=== PATIENT | female | born 1985 | race Caucasian/White ===

== ENCOUNTER → 2019-06-02 | Outpatient (CLI) | payer OTHER, SELFPAY ==
[2019-05-06 08:24] VITALS: BMI 31.3
[2019-06-02 13:12] LABS: Absolute Lymphocyte Count 1.67 X10^3/uL (0.83-4.51); Absolute Neutrophil Count 7.7 X10^3/uL (2.0-7.7); Basophil# 0.03 X10^3/uL; Basophil% 0.3 % (0-1); Eosinophil# 0.12 X10^3/uL; Eosinophils% 1.2 % (0-5); Hematocrit 36.9 % (37-47); Hemoglobin 11.9 g/dL (12.0-15.0); Lymphocyte # 1.67 X10^3/ul (4.0); Mean Corp Hgb Conc 32.2 g/dL (32-36); Mean Corpuscular Hgb 27.9 pg (27.0-32.0); Mean Corpuscular Volume 86.6 fL (81-99); Mean Platelet Vol. 10.5 fl (6.2-12.0); Monocyte# 0.55 X10^3/uL; Monocyte% 5.3 % (0-10); NRBC Flagged by Analyzer 0 % (0-5); Neutrophil # 7.71 X10^3/uL (2.7-7.7); Neutrophil % 73.9 % (47-70); Platelet Count 261 K/mm3 (150-450); RBC Distribution Width CV 14.8 % (11.6-14.6); RBC Distribution Width SD 46.8 fl (35.1-43.9); Red Blood Count 4.26 M/mm3 (4.2-5.4); White Blood Count 10.4 K/mm3 (4.4-11.0)
[2019-06-02 13:20] LABS: Glucose Challenge Gest 1H 50g 132 mg/dL (70-140)
== END | disposition home or self-care (01) ==
LOC: PAVLAB 13:02
PROVIDERS: PCP Internal Medicine; Referring Provider Obstetrics & Gynecology; Visit Provider Obstetrics & Gynecology
DX: O09.90 Supervision of high risk pregnancy, unspecified, unspecified trimester (principal); Z3A.00 Weeks of gestation of pregnancy not specified
CPT/HCPCS: 82950; 85025

== ENCOUNTER → 2019-07-14 | Outpatient (CLI) | payer OTHER, SELFPAY ==
[2019-07-01 11:31] VITALS: BMI 31.3
--- NOTE | 2019-07-14 08:10 | US_ITS ---
STUDY: SECOND AND THIRD TRIMESTER OBSTETRICAL ULTRASOUND REASON FOR EXAM: Female, 34 years old growth LMP: December 02, 2018. TECHNIQUE: Transabdominal TECHNICAL QUALITY: Adequate. PRIOR ULTRASOUND: None. FINDINGS: There is a single intrauterine fetus. The fetus is in a cephalic presentation. There is demonstrated cardiac activity with a heart rate of 133 bpm. There is a normal amniotic fluid volume. The largest amniotic fluid pocket measures 5.6 cm. The amniotic fluid index (RABIA) is 15.5 cm. The placenta is posterior in location and is not low lying. There are Grade 1 placental changes. The cervix measures 4.0 cm in length. The bilateral adnexal regions are normal. BIOMETRY: BPD: 8 cm: 32 weeks, 0 days HC: 29.2 cm: 32 weeks, 1 days AC: 28 cm: 28 weeks, 2 days FL: 6.1 cm: 6 weeks, 1 days CI: 78% FL/BPD: 77% FL/HC: FL/AC: 22% HC/AC: 1.04 age by current US: 32 weeks, 0 days. ANNALISE by current US: September 08, 2019. Estimated weight: 1901 grams, +/- 281 grams, 38 %. Age by LMP: 32 weeks, 0 days. ANNALISE by LMP: September 08, 2019. US/OB Limited With Biometrics IMPRESSION: Single live uterine gestation with mean gestational age of 32 weeks. Electronically Signed: Abdoulaye Lopez, at 11:02 EDT , Service support ,
== END | disposition home or self-care (01) ==
LOC: OPUS 08:07
PROVIDERS: PCP Internal Medicine; Referring Provider Obstetrics & Gynecology; Visit Provider Obstetrics & Gynecology
DX: O09.90 Supervision of high risk pregnancy, unspecified, unspecified trimester (principal); Z15.89 Genetic susceptibility to other disease; Z3A.00 Weeks of gestation of pregnancy not specified
CPT/HCPCS: 76816

== ENCOUNTER → 2019-08-11 | Outpatient (CLI) | payer OTHER, SELFPAY ==
[2019-07-01 11:31] VITALS: BMI 31.3
[2019-08-11 10:15] VITALS: BMI 31.3
== END | disposition home or self-care (01) ==
LOC: OPUS 13:24
PROVIDERS: PCP Internal Medicine; Referring Provider Obstetrics & Gynecology; Visit Provider Obstetrics & Gynecology
DX: O09.90 Supervision of high risk pregnancy, unspecified, unspecified trimester (principal); Z3A.00 Weeks of gestation of pregnancy not specified
CPT/HCPCS: 87081

== ENCOUNTER 2019-09-08 09:40 | Inpatient (IN) | payer OTHER, SELFPAY ==
[2019-09-08] VITALS (42 sets, daily range): BP systolic 112–150; BP diastolic 58–93; PULSE 72–103; TEMP 35.6–37.2; O2SAT 97–99; BMI 32.1
[2019-09-08] MEDS: Lactated Ringers 1,000 ML 50 ML IV (10:21)
--- NOTE | 2019-09-08 10:35 | HP.PCM_ITS ---
- Problem List (1) Encounter for induction of labor Status: Acute (2) Oligohydramnios Status: Acute (3) ALVINO-1 4G/4G genotype Status: Acute Comment: baby asa, growth us (4) Status: Acute Qualifiers: Comment: Declined 1st trimester screen/NT- 02/16/19; urine culture negative 02/18/19, declined carrier and ntd screening. 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 Required: No Is patient in pain?: No Allergies No Known Allergies Allergy (Verified 09/08/19 09:08) Medications Vits [Prenatabs FA ] 1 tab PO DAILY #30 tab 04/17/13 [Rx Confirmed 09/08/19] aspirin 81 mg chewable tablet 81 mg PO DAILY 03/04/19 [History Confirmed 09/08/19] lactobacillus combination no.8 3 billion cell capsule 3,000 mmu cells PO DAILY 03/10/19 [History Confirmed 09/08/19] Last Menstral Period: 12/07/19 Zika: Zika virus screening: Negative : No PFSH PFSH Medical History Biochemical (Acute) High risk due to recurrent loss (Acute) ALVINO-1 4G/4G genotype (Acute) Surgical History History of ankle surgery (Resolved) History of ankle surgery (Resolved) Family History Mother Breast cancer Grandmother Diabetes Sister Diabetes mellitus type 1 Grandfather Hypertension Social History (Updated 09/08/19 @ 09:[address] 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 Date Name GA/Weeks Outcome Route Bth Weight Gen Labor Lgth Anesthesia Del Locatn Provider FOB 04/15/13 [facility] HPI 40WK OB HAPPY DUE DATE!: Details: KHOA VILLASEÑOR is a 34 year old who presents for routine OB visit. upon evaluation she is found to have oligohydramnios with an rabia of 2.6 cm so will be proceeding with induction OB Visit ANNALISE Calculator Estimated Delivery Date Method Current WG Current Estimate 09/08/19 LMP (Certain) 40w 0d Expected Delivery Route/Plan Labor Preferences- labor support person: Dariel pain management options preferred: epidural cut cord/dad catch: cord : yes PP control planned: [] discussed possible routes of delivery and associated risks: [] special requests: [] Specific Issue/Plans flu vaccine: given tdap vaccine: given rhogam: na LARC form signed: yes movement and labor precautions reviewed. Problem list reviewed and updated with the most current plan of care details and appropriate orders placed. Relevant counseling for the gestational age provided. Continue routine care and follow up unless otherwise noted in visit n otes/problem list details Initial Weight: 193 lb Date EGA Weight BP Urine Prot Glucose FHR FuHt Pres Dilation Effaced St Visit Note 03/10/19 14w 0d 193 lb 2 oz (+2 oz) 125/88 Negative Negative 145 SM- no vb cramping 04/08/19 18w 1d 193 lb (+0 oz) 132/80 Negative Negative 145 SM- no vb crmaping on tamiflu prophylaxis 05/06/19 22w 1d 200 lb (+7 lb) 133/87 Negative Negative 150 SM- no vb lof good fm no regular ctx 06/02/19 26w 0d 197 lb 8 oz (+4 lb 8 oz) 126/78 Negative Negative 146 26 MH-No VB, LOF. Good FM. 28 wk labs today 07/01/19 30w 1d 200 lb 4 oz (+7 lb 4 oz) 126/82 126/82 Trace Negative 160 30 SM- no vb lof good fm no regular ctx 07/15/19 32w 1d 202 lb (+9 lb) 120/70 Negative Negative 145 32 SM- no vb lof good fm no reg ctx 07/29/19 34w 1d 203 lb (+10 lb) 120/74 Negative Negative 147 34 MH-No Vb, LOF. Good FM. Doing well 08/11/19 36w 0d 208 lb 8 oz (+15 lb 8 oz) 130/80 Negative Negative 145 36 SM- no vb lof good fm no regular ctx 08/19/19 37w 1d 207 lb (+14 lb) 124/76 Negative Negative 145 37 Cephalic Sm- no vb lof good fm nor egular ctx. lost grandmother this week but coping well 08/26/19 38w 1d 206 lb (+13 lb) 116/74 Negative Negative 140 38 Cephalic SM- no vb lof good fm no regular ctx 09/01/19 39w 0d 205 lb 8 oz (+12 lb 8 oz) 128/84 Negative Negative 140 39 Cephalic 1 SM- no vb lof good fm no regular ctx 09/08/19 40w 0d 205 lb (+12 lb) 130/86 Negative Negative 140 37 Cephalic 1.5 40 -2 SM- no vb lof good fm no regular ctx. low FH- RABIA mesaured and only 2.6 with significant debris, recommend immediate IOL patient to l and d. ACOG First Trimester First Trimester: Desire for , Alcohol, Tobacco Cessation, Illic it/Recreational Drug/Substance Use, Intimate Partner Violence, Barriers to care, Unstable Housing, Communication Barriers, Environmental/Work Hazards, Anticipated Course of Care, Toxoplasmosis Precations, Use of Any medications, Sexual activity, Exercise, Dental Care, Sauna/Hot tub use, Seat Belt use, Childbirth classes/Hospital facilities, , Travel, Indications for US and Screening for Aneuploidy Second Trimester Second Trimester: Signs and Symptoms of Labor, Selecting a care provider, Reproductive Life Planning, Care Planning, Tobacco Cessation, Depression/Anxiety and Intimate Partner Violence Third Trimester Third Trimester: Pain Management Plans, Labor support person(s), Immediate Larc, Movement Monitoring and Feeding Yes ; discussed Trial of Labor after Counseling or discussed Circumcision preference Diagnostics Diagnostics Diagnostics Glucose 1 Hr 50 gm 132 mg/dL (70-140) 06/02/19 Hgb 11.9 g/dL (12.0-15.0) L 06/02/19 Hct 36.9 % (37-47) L 06/02/19 Details: HIV: Urine Culture: Sequential Screen: NIPT Screen: ROS Const Reports system reviewed and no additional complaints, except as docu Card Reports system reviewed and no additional complaints, except as docu Resp Reports system reviewed and no additional complaints, except as docu GI Reports system reviewed and no additional complaints, except as docu, Reports nausea Reports system reviewed and no additional complaints, except as docu Musc Reports system reviewed and no additional complaints, except as docu Exam Const General: cooperative, healthy appearing, comfortable, anxious HENMT Head: normal to inspection Nose: external nose normal Face and sinus: normal facial exam Neck Neck: normal visual inspection, full ROM, no lymphadenopathy Thyroid: thyroid normal Chest Chest palpation & inspection: normal inspection of the chest Resp Effort & Inspection: normal respiratory effort GI Inspection: normal to inspection Palpation: soft, other (gravid uterus) Other: vertex and appropriate size for gestational age Other: Cervical Exam: Extrem General: pedal edema Results POC Urinalysis 2 Dip (Clinic) Office Urine Glucose Negative Last Edit by Madiha Alonzo on 09/08/19 09:17 Office Urine Protein Negative Last Edit by Madiha Alonzo on 09/08/19 09:17 Assessment & Plan Problems 1. Recurrent loss N96 borderline anticoagulant - 2. ALVINO-1 4G/4G genotype Z15.89 baby asa, growth us 3. 40 weeks gestation of Z3A.40 Declined 1st trimester screen/NT- 02/16/19; urine culture negative 02/18/19, declined carrier and ntd screening. Anatomy US normal; normal growth 07/14/2019 4. Supervision of high risk , antepartum O09.90 PRR ANNALISE 09/08/19 boy Fareed PC Mark Dariel 5. Oligohydramnios O41.00X0 6. Encounter for induction of labor Z34.90 Plan Patient presents IOL, plan management for , pitocin/AROM meade bulb. Pain management: plans epidural. GBS negative. Management of any complications: oligo I have reviewed the [facility] and made any clinically relevant updates. Orders Orders: POC Urinalysis 2 Dip (Clinic) Today Coding Level of Care Code OB Routine Diagnoses Recurrent loss N96 ALVINO-1 4G/4G genotype Z15.89 40 weeks gestation of Z3A.40 ??Weeks of gestation: 40 weeks Supervision of high risk , antepartum O09.90 Oligohydramnios O41.00X0 Encounter for induction of labor Z34.90
[2019-09-08 10:41] LABS: Absolute Lymphocyte Count 1.27 X10^3/uL (0.83-4.51); Absolute Neutrophil Count 6.8 X10^3/uL (2.0-7.7); Basophil# 0.02 X10^3/uL; Basophil% 0.2 % (0-1); Eosinophil# 0.07 X10^3/uL; Eosinophils% 0.8 % (0-5); Hematocrit 40.4 % (37-47); Hemoglobin 13.1 g/dL (12.0-15.0); Lymphocyte # 1.27 X10^3/ul (4.0); Lymphocyte % 14.4 % (19-41); Mean Corp Hgb Conc 32.4 g/dL (32-36); Mean Corpuscular Hgb 27.6 pg (27.0-32.0); Mean Corpuscular Volume 85.1 fL (81-99); Mean Platelet Vol. 11.9 fl (6.2-12.0); Monocyte# 0.61 X10^3/uL; Monocyte% 6.9 % (0-10); NRBC Flagged by Analyzer 0 % (0-5); Neutrophil # 6.76 X10^3/uL (2.7-7.7); Neutrophil % 76.6 % (47-70); Platelet Count 221 K/mm3 (150-450); RBC Distribution Width CV 14.6 % (11.6-14.6); RBC Distribution Width SD 45.2 fl (35.1-43.9); Red Blood Count 4.75 M/mm3 (4.2-5.4); White Blood Count 8.8 K/mm3 (4.4-11.0)
[2019-09-08] MEDS: Oxytocin 30 units/NS 500 ml 30 UNITS/500 ML IV.SOLN IV (11:00)
[2019-09-08] MEDS: 0.9% Normal Saline Single 100 ML IV.SOLN. IY (12:30)
[2019-09-08] MEDS: Lactated Ringers 500 ML 999 ML IV (17:30)
[2019-09-08] MEDS: fentaNYL-bupivacaine (epidural) 100 ML BAG EPIDURAL (18:06)
[2019-09-08] MEDS: Lactated Ringers 1,000 ML 200 ML IV (18:15)
[2019-09-08] MEDS: Oxytocin 30 units/NS 500 ml 30 UNITS/500 ML IV.SOLN 334 UNITS IV (21:03)
--- NOTE | 2019-09-08 21:35 | PCM.OPRPT ---
Problem List (1) Encounter for induction of labor Status: Acute (2) Oligohydramnios Status: Acute (3) ALVINO-1 4G/4G genotype Status: Acute Comment: baby asa, growth us (4) Status: Acute Qualifiers: Comment: Declined 1st trimester screen/NT- 02/16/19; urine culture negative 02/18/19, declined carrier and ntd screening. 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 - (6) Supervision of high risk , antepartum Status: Acute Comment: PRR ANNALISE 09/08/19 boy Fareed Flores Dariel Vaginal Delivery Maternal Presentation: Medically Indicated Induction 34-year-old G6, P1 at 40 weeks presents for induction labor secondary to oligohydramnios with an RABIA of 2.6 cm in the office today Method of Induction: Pitocin, Ramirez Bulb Medical Reason for Induction: - - Oligohydramnios Amniotic Membrane Rupture Type: Artificial Amniotic Fluid Description: Clear Final ANNALISE: 09/08/19 Gestational age: 40 Weeks and 0 Days Date of Procedure: 09/08/19 Pre-Operative Diagnosis: iol oligo Post-Operative Diagnosis: same Surgery/ Procedure Performed: Spontaneous Vaginal Delivery Type of Anesthesia: Epidural Description of Procedure: Patient began pushing and delivered the head in the JED presentation. The head was delivered atraumatically and a loose nuchal cord ?1 was identified and easily reduced over the infant's head. The anterior and posterior shoulders delivered without complication followed by the rest of the and the was placed on the maternal abdomen. Delayed cord clamping was employed for approximately 60 seconds. Cord was clamped and cut and gentle traction was applied to the cord and the placenta delivered spontaneously immediately following it was noted to be intact with three-vessel cord. The perineum and vagina were inspected and noted to hve a small 1st degree perineal laceration repaired in the usual fashion 3-0 vicryl rapide. EBL was 100 cc. Patient and infant tolerated delivery well. Presentation: JED Placental Delivery Description: Spontaneous Placenta Disposition: [facility] Cord Vessel Description: 3 Vessels Cord Entanglement: Around neck x 1, loose Estimated Blood Loss: 100 A gender: Male Episiotomy Description: None Laceration: Perineal Extension/lac, 1st degree Medications given after delivery: IV Pitocin Complications: None Multi Select Codes - Urinary/Genital Urinary/Genital CPT Codes: 26129 Vaginal Delivery [facility]
--- NOTE | 2019-09-08 21:37 | DCINST_ITS ---
Discharge Diet: No Restrictions Discharge Activity: Return to Normal Activity, May not drive while taking narcotic pain medications., May Shower May resume sexual activity in: 4-6 weeks Call your doctor if your incision/area has: Continuous Slow Oozing, Sudden Increased Bleeding, Increased Pain/ Swelling, Increased Redness, Foul Smelling Discharge Additional Instructions: If you experience any of the following, contact your healthcare provider. * Bleeding that soaks a pad every hour for 2 hours * Fever 100.4 or higher * Unrelieved incision or abdominal pain * Swelling, redness, discharge or bleeding from your incision or episiotomy site * Your incision begins to separate * Problems urinating (including inability to urinate or burning while urinating). * Visual changes * Severe headache * Flu-like symptoms * Pain or redness in one of both of your breasts * Pain, warmth, tenderness or swelling in your legs, especially the calf area * Frequent nausea and vomiting * Symptoms of depression or anxiety If you experience any of the following, call 911 or go to the nearest Emergency Room. * Chest pain * Problems breathing * Seizure activity * Partial or complete paralysis of a body part, slurred speech, weakness or drooping of the face, or a sudden inability to walk or hold your balance Allergies/Adverse Reactions: Allergies No Known Allergies Allergy (Verified 09/08/19 09:08) Medications to take at Discharge Vits [Prenatabs FA ] 1 tab PO DAILY #30 tab 04/17/13 Cetirizine HCl [Zyrtec] 10 mg PO DAILY 09/08/19 Please Follow Up With: Alicia Stallings MD - [phone] When: Call to make an appointment with your doctor in 6 weeks. If you had elevated Blood pressure or 4th degree laceration you will need to be seen in 2 weeks. Primary Care Physician: Nora Monte DO [Primary Care Provider] - Test Results: Test results from this visit will be discussed in further detail at your follow- up appointment, if applicable.
--- NOTE | 2019-09-08 21:37 | PCM.DCVAG ---
Discharge Diet: No Restrictions Discharge Activity: Return to Normal Activity, May not drive while taking narcotic pain medications., May Shower May resume sexual activity in: 4-6 weeks Call your doctor if your incision/area has: Continuous Slow Oozing, Sudden Increased Bleeding, Increased Pain/ Swelling, Increased Redness, Foul Smelling Discharge Additional Instructions: If you experience any of the following, contact your healthcare provider. Bleeding that soaks a pad every hour for 2 hours Fever 100.4 or higher Unrelieved incision or abdominal pain Swelling, redness, discharge or bleeding from your incision or episiotomy site Your incision begins to separate Problems urinating (including inability to urinate or burning while urinating). Visual changes Severe headache Flu-like symptoms Pain or redness in one of both of your breasts Pain, warmth, tenderness or swelling in your legs, especially the calf area Frequent nausea and vomiting Symptoms of depression or anxiety If you experience any of the following, call 911 or go to the nearest Emergency Room. Chest pain Problems breathing Seizure activity Partial or complete paralysis of a body part, slurred speech, weakness or drooping of the face, or a sudden inability to walk or hold your balance Allergies/Adverse Reactions: Allergies No Known Allergies Allergy (Verified 09/08/19 09:08) Medications to take at Discharge Vits [Prenatabs FA ] 1 tab PO DAILY #30 tab 04/17/13 Cetirizine HCl [Zyrtec] 10 mg PO DAILY 09/08/19 Please Follow Up With: Alicia Stallings MD - [phone] When: Call to make an appointment with your doctor in 6 weeks. If you had elevated Blood pressure or 4th degree laceration you will need to be seen in 2 weeks. Primary Care Physician: Nora Monte DO [Primary Care Provider] - Test Results: Test results from this visit will be discussed in further detail at your follow-up appointment, if applicable.
[2019-09-09 02:40] VITALS: BP 138/91; PULSE 86; RESP 18; TEMP 37.2
[2019-09-09] MEDS: Naproxen 250 MG Tablet 500 MG PO ×2 (02:46→13:39)
[2019-09-09 06:30] VITALS: BP 123/80; PULSE 80; RESP 18; TEMP 36.8
[2019-09-09 08:00] VITALS: BP 119/75; PULSE 82; RESP 18; TEMP 36.7
[2019-09-09] MEDS: Acetaminophen 500 MG Tablet 1000 MG PO (09:04)
--- NOTE | 2019-09-09 09:12 | PCM.PN.OB ---
Subjective: doing well no complaints pain controlled no CP SOB N V ambulating well tolerating po lochia moderate, going well - Physical Exam Vitals/I&O's: Vital Signs Temp Pulse Resp BP Pulse Ox 98.1 F 82 18 119/75 98 09/09/19 08:00 09/09/19 08:00 09/09/19 08:00 09/09/19 08:00 09/08/19 20:23 Oxygen Delivery Method Room Air Weight: 205 lb Body Mass Index (BMI) 32.1 Intake and Output for Last 24 Hours 09/07/19 09/08/19 09/09/19 23:59 23:59 23:59 Intake Total 2657.95 / 2657.95 Output Total 300 / 300 Balance 2657.95 / 2657.95 -300 / -300 General: Alert, Oriented x3 Laboratory Results 09/08/19 10:25: WBC 8.8, RBC 4.75, Hgb 13.1, Hct 40.4, MCV 85.1, MCH 27.6, MCHC 32.4, RDW Std Deviation 45.2 H, RDW Coeff of Rain 14.6, Plt Count 221, MPV 11.9, Immature Gran % (Auto) 1.100 H, Neut % (Auto) 76.6 H, Lymph % (Auto) 14.4 L, [place] % (Auto) 6.9, Eos % (Auto) 0.8, Baso % (Auto) 0.2, Absolute Neuts (auto) 6.8, Absolute Lymphs (auto) 1.27, Nucleated RBC % 0 09/08/19 10:25: Blood Type O POSITIVE, Antibody Screen NEGATIVE 09/08/19 10:50: COVID-19 (VENKAT) Not Detected Current Medications Acetaminophen (Tylenol) 1,000 mg PO Q8H PRN PRN PRN Reason: Pain Score 1-3/10 Last Admin: 09/09/19 09:04 Dose: 1,000 mg Documented by: Bisacodyl (Dulcolax) 10 mg RECTAL UD PRN PRN Reason: If no BM Dibucaine (Dibucaine) 1 applic TOPICAL TID PRN PRN; Protocol PRN Reason: Discomfort Hydrocortisone (Hytone) 1 applic TOPICAL TID PRN PRN; Protocol PRN Reason: Discomfort Methylergonovine Maleate (Methergine) 0.2 mg IM X1 PRN PRN Reason: Excess bleeding/uterine atony Naproxen (Naprosyn) 500 mg PO Q8H PRN PRN PRN Reason: Pain Score 1-3/10 Last Admin: 09/09/19 02:46 Dose: 500 mg Documented by: Ondansetron HCl (Zofran) 4 mg IV Q4H PRN PRN PRN Reason: Nausea Oxycodone HCl (Oxyir) 5 - 10 mg PO Q4H PRN PRN PRN Reason: Pain Score 4-10/10 Senna/Docusate Sodium (Senokot-S, Shannon-Colace) 1 - 2 tablet PO DAILY PRN PRN PRN Reason: Constipation Simethicone (Mylicon) 80 mg PO PCHS PRN PRN Reason: Indigestion/Stomach pain Sodium Chloride () 5 - 15 ml IV UD PRN PRN Reason: SALINE FLUSH Medical Necessity - Tobacco Use Smoking Status: Never smoker Assessment/Plan All Active Problems (Last Reviewed 09/08/19 @ 09:08 by Madiha Alonzo) Encounter for induction of labor (Acute) Oligohydramnios (Acute) Recurrent loss (Acute) ALVINO-1 4G/4G genotype (Acute) (Acute) Supervision of high risk , antepartum (Acute) s/p PPD # 1 1. routine post delivery care 2. breast feeding- support given 3. rh positive 4. rubella immune
[2019-09-09 12:00] VITALS: BP 118/82; PULSE 80; RESP 18; TEMP 37
[2019-09-09 16:32] VITALS: BP 123/74; PULSE 74; RESP 18; TEMP 37.3
[2019-09-09 19:57] VITALS: BP 117/78; PULSE 75; RESP 16; TEMP 37.3
[2019-09-10 02:06] VITALS: BP 124/80; PULSE 72; RESP 16; TEMP 36.9
[2019-09-10] MEDS: Naproxen 250 MG Tablet 500 MG PO (03:10)
[2019-09-10 08:30] VITALS: BP 116/83; PULSE 75; RESP 14; TEMP 36.6
== END 2019-09-10 10:20 | disposition home or self-care (01) | DRG 807 ==
PROVIDERS: Admitting Provider Obstetrics & Gynecology; PCP Internal Medicine; Visit Provider Obstetrics & Gynecology
DX: O41.03X0 Oligohydramnios, third trimester, not applicable or unspecified (principal); Z37.0 Single live birth; O69.81X0 Labor and delivery complicated by cord around neck, without compression, not applicable or unspecified; O70.0 First degree perineal laceration during delivery; Z3A.40 40 weeks gestation of pregnancy
CPT/HCPCS: 59025; 59050; 85025; 86850; 86900; 86901; 87635; 99218; G2023; J7120; G0378; U0003

== ENCOUNTER → 2019-10-20 | Outpatient (CLI) | payer OTHER, SELFPAY ==
[2019-10-20 11:34] VITALS: BMI 32.1
[2019-10-25 10:44] LABS: HPV APTIMA, High Risk Negative (Negative)
== END | disposition home or self-care (01) ==
LOC: LABSPEC 12:52
PROVIDERS: PCP Internal Medicine; Referring Provider Obstetrics & Gynecology; Visit Provider Obstetrics & Gynecology
DX: Z12.4 Encounter for screening for malignant neoplasm of cervix (principal)
CPT/HCPCS: 87624; 88175; G0145

== ENCOUNTER → 2022-11-07 | Outpatient (CLI) | payer BC, SELFPAY ==
--- NOTE | 2022-11-07 09:37 | BI_ITS ---
MAMMOGRAPHY - BILATERAL SCREENING REASON FOR EXAM: Female, 37 years old. Routine annual screening examination. PERTINENT HISTORY: Mother with breast cancer. TECHNIQUE: Digital bilateral breast taylor (3D mammographic acquisition) in the CC and MLO projections. 2-D mediolateral oblique (MLO) and craniocaudad (CC) views of both breasts were obtained. CAD: Full Field Digital Mammography with Computer Added Detection was performed. COMPARISON: None. Baseline examination. FINDINGS: Breast Composition: The breasts are heterogeneously dense, which may obscure small masses. There is a 1.4 cm x 1.2 cm heterogeneous nodule in the anterior upper lateral aspect of the right breast. Correlation with ultrasound is recommended. Small benign appearing bilateral axillary lymph nodes. No other significant abnormalities are identified. BI/SCRN MAMM (CAD)W/TAYLOR BILAT IMPRESSION: 1.4 cm x 1.2 cm heterogeneous nodule in the anterior upper lateral aspect of the right breast. Correlation with ultrasound is recommended. ASSESSMENT CATEGORY: BIRADS Category 0: Incomplete. Need additional imaging evaluation. A letter regarding these results will be sent to the patient by the facility within 30 days. Approximately 10% of breast cancers are not detected by mammography. A normal mammogram should not delay biopsy of a clinically suspicious abnormality. [id number] Electronically Signed: Abdoulaye Lopez MD at 11:15 EDT ,
== END | disposition home or self-care (01) ==
LOC: OPBI 09:36
PROVIDERS: PCP Internal Medicine; Referring Provider Nurse Practitioner Women's Health; Visit Provider Nurse Practitioner Women's Health
DX: Z12.31 Encounter for screening mammogram for malignant neoplasm of breast (principal)
CPT/HCPCS: 77063; 77067

== ENCOUNTER → 2022-11-17 | Outpatient (CLI) | payer BC, SELFPAY ==
--- NOTE | 2022-11-17 11:04 | US_ITS ---
STUDY: ULTRASOUND BREAST - RIGHT REASON FOR EXAM: Female, 37 years old. Abnormal screening mammogram. TECHNIQUE: Axial and longitudinal images of the RIGHT breast were performed with a high resolution ultrasound transducer. # OF IMAGES: 57 COMPARISON: Comparison is made with prior mammogram dated November 07, 2022. FINDINGS: RIGHT Breast: The mammographic abnormality corresponds to a 1.2 cm x 1.4 cm x 0.9 cm hypoechoic solid nodule at the 10:00 position of the breast at 6 cm from the nipple. A biopsy is recommended. Incidental note is also made of a 8mm by 8mm by 4 mm septated cyst at the 12:00 position of the breast at 2 cm from the nipple. US/Breast Limited Unilateral IMPRESSION: The mammographic abnormality corresponds a 1.2 cm x 1.4 cm x 0.9 cm hypoechoic solid nodule at the 10:00 position of the breast at 6 cm from the nipple. Biopsy is recommended. ASSESSMENT CATEGORY: BIRADS Category 4: Suspicious - Biopsy Should Be Considered. A letter regarding these results will be sent to the patient by the facility within 30 days. Electronically Signed: Abdoulaye Lopez MD at 12:37 EDT ,
== END | disposition home or self-care (01) ==
PROVIDERS: PCP Internal Medicine; Referring Provider Nurse Practitioner Women's Health; Visit Provider Nurse Practitioner Women's Health
DX: R92.2 Inconclusive mammogram (principal)
CPT/HCPCS: 76642

== ENCOUNTER → 2022-11-18 | Outpatient (CLI) | payer BC, SELFPAY ==
--- NOTE | 2022-11-18 15:00 | BRBX_PTH ---
PATIENT: KHOA VILLASEÑOR LOC: [facility] U#:[id number] AGE/SX: 37/F ROOM: RE11/18/[address]: Dr. Erich Daily MD : 1985 BED: DIS: 11/18/2022 SPEC #: [id number] RECD: 11/18/22 16:05 STATUS: NAHID REBeatrice #: [id number] RABIA: 11/18/22 15:[address]: Erich Daily DEPT: SURGICAL PATHOLOGY RECD BY: Fam Montalvo ENTERED: 11/19/22 08:39 SP TYPE: BREAST BX OTHR DR: Dr. Nora Monte DO Tissues: Right breast, NOS Procedures: Surgery Specimen Level IV HEADER OPERATION: Right breast biopsy PRE-OP DIAGNOSIS: Right breast mass TISSUE SUBMITTED: Right breast tissue MICROSCOPIC DIAGNOSIS Right breast, core biopsy: Fibroadenoma. AM:judith 11/20/2022 MICROSCOPIC DESCRIPTION Slides are reviewed. GROSS DESCRIPTION Received in fixative is one container labeled with the patient's name and designated right breast. The specimen consists of multiple elongated fragments of negrete-yellow fibroadipose tissue that in aggregate measure 1.5 x 0.5 x 0.1 cm. The entire specimen is submitted in one cassette. / SJ:rg 11/19/2022 TC:5 CPT: 13567
== END | disposition home or self-care (01) ==
LOC: LABSPEC 16:09
PROVIDERS: PCP Internal Medicine; Referring Provider Surgery; Visit Provider Surgery
DX: D24.1 Benign neoplasm of right breast (principal)
CPT/HCPCS: 88305

== ENCOUNTER → 2023-10-12 | Outpatient (CLI) | payer BC, SELFPAY ==
[2023-10-17 12:12] LABS: HPV APTIMA, High Risk Negative (Negative)
== END | disposition home or self-care (01) ==
PROVIDERS: PCP Internal Medicine; Referring Provider Nurse Practitioner Women's Health; Visit Provider Nurse Practitioner Women's Health
DX: Z12.4 Encounter for screening for malignant neoplasm of cervix (principal)
CPT/HCPCS: 87624; 88175; G0145

== ENCOUNTER → 2023-11-09 | Outpatient (CLI) | payer BC, SELFPAY ==
--- NOTE | 2023-11-09 07:07 | BI_ITS ---
MAMMOGRAPHY - BILATERAL SCREENING 3-D TOMOSYNTHESIS REASON FOR EXAM: Female, 38 years old. Routine screening PERTINENT HISTORY: History of benign breast biopsy.. TECHNIQUE: 2-D mammograms and 3-D Tomosynthesis of the breast (s) were performed. CAD was performed. COMPARISON: 11/07/2022 FINDINGS: The breast composition is composed of scattered fibroglandular density. Stable appearance of a previously biopsied 1 cm nodule in the upper-outer quadrant of the right breast. Scattered benign calcifications are seen. No dense spiculated masses or suspicious microcalcifications are identified. No architectural distortion is identified. There is no skin thickening or retraction. There has been no significant change since the prior study. BI/SCRN MAMM (CAD)W/TAYLOR BILAT IMPRESSION: No mammographic signs of malignancy. Routine yearly mammograms recommended. ASSESSMENT CATEGORY: BIRADS Category 2: Benign. A letter regarding these results will be sent to the patient by the facility within 30 days. FOLLOW UP RECOMMENDATION: Yearly follow up mammogram recommended. (A) Approximately 10% of breast cancers are not detected by mammography. A normal mammogram should not delay biopsy of a clinically suspicious abnormality. Electronically Signed: Colt Zavaleta MD at 8:36 EDT ,
== END | disposition home or self-care (01) ==
LOC: OPBI 07:07
PROVIDERS: PCP Internal Medicine; Referring Provider Nurse Practitioner Women's Health; Visit Provider Nurse Practitioner Women's Health
DX: Z12.31 Encounter for screening mammogram for malignant neoplasm of breast (principal)
CPT/HCPCS: 77063; 77067

== ENCOUNTER → 2023-12-10 | Outpatient (CLI) | payer BC, SELFPAY ==
--- NOTE | 2023-12-10 15:26 | US_ITS ---
STUDY: ULTRASOUND BREAST - RIGHT REASON FOR EXAM: Female, 38 years old. Right breast lump. TECHNIQUE: Axial and longitudinal images of the RIGHT breast were performed with a high resolution ultrasound transducer. # OF IMAGES: 9 COMPARISON: Comparison is made with prior mammogram dated November 09, 2023 and prior sonogram of the right breast there are November 17, 2022. FINDINGS: RIGHT Breast: The upper outer quadrant of the right breast was examined with ultrasound. No abnormality is seen. There is evidence of glandular tissue. US/Breast Limited Unilateral IMPRESSION: No sonographic abnormality is seen. ASSESSMENT CATEGORY: BIRADS Category 1: Negative. A letter regarding these results will be sent to the patient by the facility within 30 days. Electronically Signed: Abdoulaye Lopez MD at 9:24 EDT ,
== END | disposition home or self-care (01) ==
LOC: OPBI 15:26 → OPUS 15:29
PROVIDERS: PCP Internal Medicine; Referring Provider Nurse Practitioner Women's Health; Visit Provider Nurse Practitioner Women's Health
DX: N63.11 Unspecified lump in the right breast, upper outer quadrant (principal); Z80.3 Family history of malignant neoplasm of breast
CPT/HCPCS: 76642

== ENCOUNTER → 2024-11-09 | Outpatient (CLI) | payer BC, SELFPAY ==
--- NOTE | 2024-11-09 08:57 | US_ITS ---
PROCEDURE: BREAST LIMITED UNILATERAL 11/09/2024 REASON FOR EXAM: F, Age 39 y/o , FIBROGLANDULAR DENSE BREST TISSUE Bilateral breast pain. COMPARISON: Prior mammogram done earlier in the day.. TECHNIQUE: Procedure Code: [id number] Modality: US Procedure: BREAST LIMITED UNILATERAL. The upper-outer quadrant of the left breast was examined with ultrasound. FINDINGS: There is a 6 mm x 7 mm x 3 mm cyst at the 1 o'clock position of the breast at 7 cm from the nipple. Adjacent to this, there is a 6 mm x 10 mm x 4 mm cyst. US/Breast Limited Unilateral IMPRESSION: There are 2, subcentimeter cysts at the 1 o'clock position of the breast at 7 c m from the nipple. BI-RADS 2: BENIGN RECOMMENDATION: Routine annual follow-up in 1 Year Reading Location: [facility]
--- NOTE | 2024-11-09 08:57 | US_ITS ---
PROCEDURE: BREAST LIMITED UNILATERAL 11/09/2024 REASON FOR EXAM: F, Age 39 y/o , FIBROGLANDULAR DENSE BREST TISSUE Bilateral breast pain. COMPARISON: Prior mammogram done earlier in the day.. TECHNIQUE: Procedure Code: USBRSTLIMIT Modality: US Procedure: BREAST LIMITED UNILATERAL. The lateral half of the right breast was examined with ultrasound. FINDINGS: There is a 1.2 cm 1.1 cm 1.1 cm hypoechoic solid nodule at the 10 o'clock position of the breast at 3 cm from the nipple. A tissue clip marker is seen within it from prior biopsy. US/Breast Limited Unilateral IMPRESSION: 1.2 cm x 1.1 cm 1.1 cm hypoechoic solid nodule at the 10 o'clock position of th e breast at 3 cm from the nipple. A tissue clip marker is seen within it. BI-RADS 2: BENIGN RECOMMENDATION: Routine annual follow-up in 1 Year Reading Location: [facility]
--- NOTE | 2024-11-09 09:00 | BI_ITS ---
EXAM: DIAG MAMM W/CAD, BILAT 11/09/2024 CLINICAL HISTORY: F, Age 39 y/o , BILATERAL BREAST PAIN. Bilateral axillary pain. TECHNIQUE: Procedure Code: [id number] Modality: MG Procedure: DIAG MAMM W/CAD, BILAT. COMPARISON: Prior exam(s) dated November 09, 2023.. FINDINGS: TISSUE DENSITY: The breasts are heterogeneously dense, which may obscure small masses. Bilateral Breast Mammographic Findings: No significant masses, calcifications or other abnormalities are identified. Stable 1 cm nodular density in the upper lateral aspect of the right breast. A tissue clip marker is seen within it. Stable small benign-appearing bilateral axillary lymph nodes. No suspicious masses, areas of developing architectural distortion, or suspicious calcifications. There has been no significant interval change. BI/DIAG MAMM W/CAD, BILAT IMPRESSION: Stable examination. With the patient's history of bilateral axillary pain, tar geted sonographic correlation recommended. OVERALL FINAL ASSESSMENT BI-RADS 0: INCOMPLETE - NEED ADDITIONAL IMAGING EVALUATION. RECOMMENDATION: Ultrasound Recommended A letter with findings and recommendations will be mailed to the patient. Reading Location: [id number]
== END | disposition home or self-care (01) ==
PROVIDERS: PCP Internal Medicine; Referring Provider Obstetrics & Gynecology; Visit Provider Obstetrics & Gynecology
DX: R92.323 Mammographic fibroglandular density, bilateral breasts (principal); Z80.3 Family history of malignant neoplasm of breast; N64.4 Mastodynia
CPT/HCPCS: 76642; 77062; 77066; G0279

== ENCOUNTER → 2024-11-14 | Outpatient (CLI) | payer BC, SELFPAY ==
--- NOTE | 2024-11-14 13:31 | MRI_ITS ---
PROCEDURE: BREAST BILATERAL W/O AND W 11/14/2024 REASON FOR EXAM: FHX BREAST CA, FIBROGLANDULAR TISSUE, [place] History of bilateral breast pain. History of bilateral axillary pain. History of prior right breast biopsy. The biopsy was benign. TECHNIQUE: Procedure Code: [id number] Modality: MR Procedure: BREAST BILATERAL W/O AND W CONTRAST: 17 mL of Clariscan. COMPARISON: Mammogram studies dated 11/09/2023, 12/10/2023, and 11/09/2024. Breast ultrasounds dated 11/09/2024 were also reviewed. FINDINGS: TISSUE DENSITY: There are scattered areas of fibroglandular density. Background Parenchymal Enhancement: Moderate. This may decrease the sensitivity of breast MRI. RIGHT Breast: There is a stable, 1 cm, lobulated, heterogeneous mass in the superior outer aspect of the right breast, 5 cm from the nipple. Mass has a clip within it. This mass does correlate to the mass seen on the mammogram and ultrasound examinations. It is most compatible with a fibroadenoma. No suspicious mass or non-mass enhancement. LEFT Breast: There is a 1 cm cyst identified in the superior outer quadrant of the left breast approximately 7 cm from the nipple. No suspicious mass or non-mass enhancement. Other Findings: No suspicious axillary or internal mammary lymph nodes. Visualized portions of the thoracic and abdominal viscera are unremarkable. MRI/Breast Bilateral W/O and W IMPRESSION: OVERALL FINAL ASSESSMENT BI-RADS 2: BENIGN RECOMMENDATION: Routine annual follow-up in 1 Year Reading Location: [id number]
== END | disposition home or self-care (01) ==
LOC: MRI 13:25
PROVIDERS: PCP Internal Medicine; Referring Provider Obstetrics & Gynecology; Visit Provider Obstetrics & Gynecology
DX: N63.12 Unspecified lump in the right breast, upper inner quadrant (principal); R92.323 Mammographic fibroglandular density, bilateral breasts; Z80.3 Family history of malignant neoplasm of breast
CPT/HCPCS: 77049; A9575; A4216; C8908